=== PATIENT | male | born 1940 | race Caucasian/White ===

== ENCOUNTER 2017-10-11 10:15 | Observation (INO) | payer MEDICARE, OTHER ==
[2017-10-08 13:27] LABS: BASOPHILS # (AUTO) 0.1 (0.0-0.1); BASOPHILS % 0.8 % (0.0-1.0); EOSINOPHILS # (AUTO) 0.1 (0.0-0.4); EOSINOPHILS % 1.7 % (0.0-6.0); HEMATOCRIT 41.7 % (38.2-49.6); HEMOGLOBIN 14.5 g/dL (14.0-18.0); LYMPHOCYTES # (AUTO) 1.9 (1.0-3.2); LYMPHOCYTES % 26.6 % (18.0-39.1); MEAN CORPUSCULAR HEMOGLOBIN 32.4 pg (28-32); MEAN CORPUSCULAR HGB CONC 34.8 g/dL (31-35); MEAN CORPUSCULAR VOLUME 93.3 fL (81-99); MONOCYTES # (AUTO) 0.8 (0.2-0.8); MONOCYTES % 11.7 % (4.4-11.3); NEUTROPHILS # (AUTO) 4.2 (2.1-6.9); NEUTROPHILS % 58.9 % (38.7-80.0); PLATELET COUNT 233 x10e3/uL (140-360); RED BLOOD COUNT 4.47 x10e6/uL (4.3-5.7); RED CELL DISTRIBUTION WIDTH 13.1 % (11.7-14.4)
[2017-10-08 13:43] LABS: INR 1.22; PARTIAL THROMBOPLASTIN TIME 27.9 seconds (23.8-35.5); PROTHROMBIN TIME 14.5 seconds (11.9-14.5)
[2017-10-08 13:52] LABS: ALANINE AMINOTRANSFERASE 32 IU/L (0-55); ALBUMIN 4.4 g/dL (3.5-5.0); ALBUMIN/GLOBULIN RATIO 1.3 (0.8-2.0); ALKALINE PHOSPHATASE 66 IU/L (40-150); ANION GAP 16.8 mmol/L (8-16); BLOOD UREA NITROGEN 14 mg/dL (7-26); BUN/CREATININE RATIO 14 (6-25); CALCIUM 9.5 mg/dL (8.4-10.2); CARBON DIOXIDE 27 mmol/L (22-29); CHLORIDE 101 mmol/L (98-107); CREATININE, SERUM 0.97 mg/dL (0.72-1.25); EST GLOMERULAR FILTRATION RATE > 60 ML/MIN (60-); GLUCOSE 112 mg/dL (74-118); POTASSIUM 3.8 mmol/L (3.5-5.1); SODIUM 141 mmol/L (136-145)
--- NOTE | 2017-10-08 13:57 | Diagnostic Imaging Report ---
PROCEDURE: Frontal and lateral views of the chest. COMPARISON: None. INDICATIONS: PRE OP FINDINGS: Lines/tubes: None. Lungs: The lungs are well inflated. Multiple linear opacities in the right middle lobe likely reflect subsegmental atelectasis or scarring. Lungs are otherwise clear. There is no evidence of pneumonia or pulmonary edema. Pleura: There is no pleural effusion or pneumothorax. Eventration of the right anterior hemidiaphragm. Heart and mediastinum: The cardiac silhouette is unremarkable. Pulmonary vasculature is normal. Tortuous aorta. Bones: No acute bony abnormality. IMPRESSION: 1. No acute cardiopulmonary abnormalities 2. Right middle lobe subsegmental atelectasis or scarring.. Tadeo Galindo M.D. Dictated by: Tadeo Galindo M.D. on 10/08/2017 at 13:57 Electronically approved by: Tadeo Galindo M.D. on 10/08/2017 at 13:57
[~2017-10-11] VITALS: Ht 172.7 cm; Wt 84.4 kg
[~2017-10-11 10:15] MED LIST: ATORVASTATIN CA10 MG PO; FLOMAX0.4 MG PO; LEVOFLOXACIN 500MG/D5W 100ML 100 ML IV ONE; MICARDIS HCT 41 EACH PO; MICARDIS40 MG PO
--- OUTSIDE RECORDS SUMMARY | 2017-10-11 10:17 | XMS REPORT | Clinical Summary ---
Author Author [facility] Organization [facility] Address Unknown Phone Unavailable Care Team Providers Care Hydroelectric Plant Operator Name Role Phone Sierra Canela MD PCP Allergies Active Allergy Reactions Severity Noted Date Comments Cephalexin 05/21/2017 Current Medications Prescription Sig. Disp. Refills Start End Date Status Date tamsulosin (FLOMAX) 0.4 04/17/20 Active mg capsule,extended 17 release 24hr Active Problems Problem Noted Date Primary osteoarthritis of both knees 05/21/2017 Encounters Date Type Specialty Care Team Description 05/21/2017 Office Visit Sports Medicine Raymundo Sawyer MD Primary osteoarthritis of both knees (Primary Dx); Pain in both knees, unspecified chronicity after 10/10/2016 Family History Medical History Relation Name Comments Prostate cancer Father Stroke Father Relation Name Status Comments Father Social History Tobacco Use Types Packs/Day Years Used Date Never Smoker Alcohol Use Drinks/Week oz/Week Comments Yes 1 Standard 0.6 per day drinks or equivalent Sex Assigned at Date Recorded Not on file Last Filed Vital Signs Not on file Plan of Treatment Health Maintenance Due Date Last Done Comments COLONOSCOPY 02/22/1992 ZOSTER VACCINE 2002 PNEUMOCOCCAL 2007 POLYSACCHARIDE VACCINE AGE 65 AND OVER PNEUMOCOCCAL-13 2007 INFLUENZA VACCINE 03/05/2017 Results * XR Knee 4+ Vw Bilateral (05/21/2017 10:53 AM) Specimen Performing Laboratory [facility] [address] [place] [address] Narrative 5 views of the bilateral knees show complete loss of the medial joint space on the left side. There is osteophyte formation at the bilateral patellofemoral joint spaces in the medial joint space on the right. No acute fractures are noted. There is chondrocalcinosis in the lateral compartment of the right knee. Impression: Bilateral left > right knee osteoarthritis. after 10/10/2016 Insurance Payer Benefit Subscriber ID Type Phone Address Plan / Group MEDICARE MEDICARE xxxxxxxxxx Medicare [place], [place] PART A AND B COMMERCIAL MISC MISC xxxxxxxxx Commercial COMMERCIAL
--- OUTSIDE RECORDS SUMMARY | 2017-10-11 10:17 | XMS REPORT ---
Author Author [facility] Address Unknown Phone Unavailable Care Team Providers Care Bin Tripper Operator Name Role Phone DAVIS CAMPUZANO Unavailable Unavailable Problems This patient has no known problems. Allergies, Adverse Reactions, Alerts This patient has no known allergies or adverse reactions. Medications This patient has no known medications. Results Test Description Test Time Test Comments Text Results Atomic Results Result Comments CHEST 2 VIEWS [place] [address] Patient Name: JESSICA SONG MR #: [id number] : 1940 Age/Sex: 77/M Req # : [id number] Adm Physician: Ordered by: DAVIS CAMPUZANO MD Report #: [id number] Location: OR Room/Bed: Procedure: [id number] DX/CHEST 2 VIEWS Exam Date: 10/08/17 Exam Time: 1300 REPORT STATUS: Signed PROCEDURE: Frontal and lateral views of the chest. COMPARISON: None. INDICATIONS: PRE OP FINDINGS: Lines/tubes: None. Lungs: The lungs are well inflated. Multiple linear opacities in the right middle lobe likely reflect subsegmental atelectasis or scarring. Lungs are otherwise clear. There is no evidence of pneumonia or pulmonary edema. Pleura: There is no pleural effusion or pneumothorax. Eventration of the right anterior hemidiaphragm. Heart and mediastinum: The cardiac silhouette is unremarkable. Pulmonary vasculature is normal. Tortuous aorta. Bones: No acute bony abnormality. IMPRESSION: 1. No acute cardiopulmonary abnormalities 2. Right middle lobe subsegmental atelectasis or scarring.. Skye Galindo M.D. Dictated by: Skye Galindo M.D. on 10/08 at 13:57 Electronically approved by: Skye Galindo M.D. on 01/2018 at 13:57 Dictated By: SKYE GALINDO MD [id number] Transcribed By: QUE on 10/08/17 1351 COPY TO: DAVIS CAMPUZANO MD
[2017-10-11] MEDS ORDERED: ACETAMINOPHEN/CODEINE 300MG - 30MG TAB PO PRN (12:30)
--- NOTE | 2017-10-11 12:42 | Operative Report ---
DATE OF PROCEDURE: October 11, 2017 PREOPERATIVE DIAGNOSIS: Elevated prostate-specific antigen. POSTOPERATIVE DIAGNOSIS: Elevated prostate-specific antigen. OPERATION PERFORMED: Ultrasound-directed transrectal prostate biopsy. ANESTHESIA: IV sedation monitored anesthesia care. INDICATIONS: This patient is 77-year-old white male whom I have been following for several years with his PSA slowly rising. It has finally gone up to 8.61 as of September 25, 2017, and the patient now agrees to an ultrasound-directed transrectal prostate biopsy. For further details, please refer to the history and physical. The procedure was done in the following fashion: DESCRIPTION OF PROCEDURE: The patient was taken to the operating room and placed under IV sedation monitored anesthesia care on the stretcher and placed in the lateral decubitus position with the right side up. An ultrasound scan of the prostate was performed using the [employer] ultrasound probe. The prostate was estimated at about 40 grams in size. There were some internal echoes from stones present. No discrete hypoechoic areas were identified. The seminal vesicles appeared normal. Sextant biopsies were obtained using the viaCycle spring-loaded biopsy gun through the ultrasound probe. Specimens were taken from the right base lateral, then right base medial, then right mid lateral, then right mid medial, then right apex lateral, then right apex medial, then left base lateral, then left base medial, then left mid lateral, then left mid medial, then left apex lateral, then left apex medial. Once this was accomplished, the ultrasound probe was removed. The patient was returned to a supine position, and an 18-Danish Ascencio catheter was inserted to gravity drainage. Our plan at this time is to watch him overnight on IV Levaquin. Assuming he is afebrile in the morning, we will remove the catheter and he can go home after he voids. Job#: [id number]
--- OUTSIDE RECORDS SUMMARY | 2017-10-11 13:01 | XMS REPORT | Clinical Summary ---
Author Author [facility] Address Unknown Phone Unavailable Care Team Providers Care Senior Oracle Pl Sql Developer Name Role Phone Sierra Canela MD PCP [...] (05/21/2017 10:53 AM) Specimen Performing Laboratory [facility] [address] [place] [address] Narrative 5 views of the bilateral knees [...] Plan / Group MEDICARE MEDICARE xxxxxxxxxx Medicare [place], [place] PART A AND B COMMERCIAL MISC MISC xxxxxxxxx Commercial COMMERCIAL
[2017-10-11 13:43] VITALS: BP 129/63
[2017-10-11 13:44] VITALS: BP 129/63
[2017-10-11 15:21] VITALS: BP 126/63
[2017-10-11] MEDS: DOCUSATE SODIUM 100 MG CAP PO SCH (16:28)
[2017-10-11] MEDS ORDERED: SEVOFLURANE INHAL SOLN 250 ML PEN BTL ONE (18:16)
[2017-10-11] MEDS ORDERED: ONDANSETRON HCL INJ 2 MG/ML VIAL ONE (18:16)
[2017-10-11] MEDS ORDERED: PROPOFOL IV EMULSION 10 MG/ML 20 ML VIAL ONE (18:16)
[2017-10-11] MEDS ORDERED: EPHEDRINE SULFATE INJ 50 MG/10 ML SYR ONE (18:16)
[2017-10-11] MEDS ORDERED: DEXAMETHASONE SOD PHOS INJ 4 MG/ML VIAL ONE (18:16)
[2017-10-11] MEDS ORDERED: LIDOCAINE HCL 2% LOCAL INJ 5 ML SDV VIAL INJ ONE (18:16)
[2017-10-11] MEDS ORDERED: MIDAZOLAM HCL 2 MG/2 ML VIAL ONE (18:33)
[2017-10-11] MEDS ORDERED: FENTANYL CITRATE/PF 100MCG/2 ML INJ ONE (18:33)
[2017-10-11 20:00] VITALS: BP 120/58
[2017-10-11] MEDS: ATORVASTATIN 10 MG TAB PO SCH ×2 (20:15→21:00)
[2017-10-11 20:29] VITALS: BP 120/58
[2017-10-12 04:00] VITALS: BP 110/59
[2017-10-12 08:08] VITALS: BP 129/62
[2017-10-12] MEDS: DOCUSATE SODIUM 100 MG CAP PO SCH (08:25)
[2017-10-12 09:00] VITALS: BP 129/62
[2017-10-12] MEDS ORDERED: TAMSULOSIN HCL 0.4 MG CAP PO SCH (09:00)
[2017-10-12] MEDS ORDERED: TELMISARTAN 40 MG TAB PO SCH (09:00)
[2017-10-12] MEDS ORDERED: HYDROCHLOROTHIAZIDE 25 MG TAB PO SCH (09:00)
[2017-10-12] MEDS ORDERED: LEVOFLOXACIN 500MG/D5W 100ML 100 ML IV ONE (09:00)
[2017-10-12 11:22] VITALS: BP 133/69
[2017-10-12] MEDS ORDERED: LEVAQUIN500 MG PO (12:12)
--- NOTE | 2017-10-12 13:00 | Progress Note ---
DATE: October 12, 2017 DISCHARGE PROGRESS NOTE, DEPARTMENT OF UROLOGY The patient is afebrile for one day status post ultrasound-directed transrectal prostate biopsy. The Ascencio catheter has been removed. He is voiding without difficulty. My plan at this time is to send him home on Levaquin 500 mg 1 p.o. daily for 7 days. He will have a return appointment to see me again in 2 weeks to go over the results of the prostate biopsy. Job#: [id number]
== END 2017-10-12 13:37 | disposition home or self-care (01) ==
LOC: OR 10:15 → IMCU 12:59
PROVIDERS: ADMIT Urology; ATTEND Urology
DX: N40.1 Benign prostatic hyperplasia with lower urinary tract symptoms (principal); R39.12 Poor urinary stream; I10 Essential (primary) hypertension; M12.9 Arthropathy, unspecified; K42.9 Umbilical hernia without obstruction or gangrene; R97.20 Elevated prostate specific antigen [PSA]
CPT/HCPCS: 36415; 55700; 71046; 76872; 76942; 80053; 85025; 85610; 85730; 88305; 93005; G0378 ×2; J1100; J1956 ×2; J2001; J2250; J2405